=== PATIENT | male | born 1945 | race Caucasian/White ===

== ENCOUNTER 2024-11-30 06:08 | Day surgery (SDC) | payer MEDICARE, OTHER, SELFPAY ==
[2024-11-30 07:29] VITALS: BMI 37.4
[2024-11-30 07:31] VITALS: BMI 37.4
[2024-11-30 07:32] VITALS: BP 130/73
[2024-11-30 11:22] VITALS: BP 117/67
[2024-11-30 11:45] VITALS: BP 118/66
== END 2024-11-30 12:05 | disposition home or self-care (01) ==
LOC: SDS 06:08
PROVIDERS: ATTENDING PHYSICIAN Internal Medicine Gastroenterology
DX: R59.0 Localized enlarged lymph nodes (principal); C15.5 Malignant neoplasm of lower third of esophagus; K22.89 Other specified disease of esophagus; N28.89 Other specified disorders of kidney and ureter; K86.9 Disease of pancreas, unspecified; K22.81 Esophageal polyp
CPT/HCPCS: 43242; 88173; 88305